=== PATIENT | male | born 1995 | race Hispanic/Latino ===

== ENCOUNTER 2022-10-17 09:56 | Emergency (ER) | payer BC, MEDICAID ==
[~2022-10-17] VITALS: Ht 165.1 cm; Wt 92.1 kg
[2022-10-17] MEDS ORDERED: AMOX500C2 PO (11:26)
[2022-10-17] MEDS ORDERED: CEFTRIAXONE 1G VIAL IM ONE (11:30)
[2022-10-17 11:47] VITALS: BP 146/98
== END 2022-10-17 11:55 | disposition home or self-care (01) ==
LOC: EDH 09:56
DX: J02.0 Streptococcal pharyngitis (principal); Z20.822 Contact with and (suspected) exposure to COVID-19
CPT/HCPCS: 99284; 87635; 87880; 87804 ×2; 96372; C9803; J0696